=== PATIENT | female | born 1965 | race American Indian/Alaskan Native ===

== ENCOUNTER 2017-04-21 09:33 | Emergency (ER) | payer OTHER ==
[2017-04-21 10:08] VITALS: BP 136/100
[2017-04-21] MEDS ORDERED: Ketorolac 30 MG/ML SDV IM ONE (10:16)
[2017-04-21] MEDS ORDERED: oxyCODONE 5 MG Tab PO ONE (10:18)
[2017-04-21] MEDS ORDERED: Ondansetron 4 MG Tab.DIS PO ONE (10:18)
[2017-04-21 10:34] LABS: CHLORIDE,CL 108 mmol/L (101-111); SODIUM,NA 143 mmol/L (135-145)
[2017-04-21 10:35] LABS: ACETAMINOPHEN < 10
[2017-04-21] MEDS ORDERED: Acetaminophen/HYDROcodone 325-10 MG Tab PO ONE (10:46)
[2017-04-21] MEDS ORDERED: Acetaminophen/HYDROcodone 325-10 MG Tab ONE (10:46)
--- NOTE | 2017-04-22 15:44 | EDM.PDOC ---
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 Denies any other injury. Pain better with ice pack, rest and immobilization. Pain worse with movement of right knee joint, weight bearing and ambulation. Patient has been taking Tylenol 2500mg q 6 hours, but now is having nausea. Location: Reports: Lower Extremity, Right Quality: Reports: Ache Severity: Severe Improves with: Reports: None Worsens with: Reports: None Associated Symptoms: Reports: No Other Symptoms Right Knee Pain Score (Numeric/FACES): 8 - Related Data Allergies Allergy/AdvReac Type Severity Reaction Status Date / Time No Known Allergies Allergy Verified 04/21/17 09:37 Home Meds: Home Meds Acetaminophen [Acetaminophen Extra Strength] 2,500 mg PO Q6HR PRN 04/21/17 [ History] Past Medical History - Past Surgical History Musculoskeletal Surgical History: Reports: Other (See Below) (right patella repair December/2014.) Social & Family History - Family History Family Medical History: Noncontributory Review of Systems - Review of Systems Review Of Systems: ROS reveals no pertinent complaints other than HPI. ED EXAM, GENERAL - Physical Exam Exam: See Below Exam Limited By: No Limitations General Appearance: Alert, WD/WN, No Apparent Distress Respiratory/Chest: No Respiratory Distress Cardiovascular: Regular Rate, Rhythm, Tachycardia GI/Abdominal: Normal Bowel Sounds, Soft, Non-Tender, No Organomegaly, No Distention, No Abnormal Bruit, No Mass (Female) Exam: Deferred Rectal (Female) Exam: Deferred Back Exam: Normal Inspection, Full Range of Motion, NT Extremities: Other (Generalzed tenderness to right knee, no visible swelling or joint effusion. Decreased right knee ROM due to pain. ) Neurological: Alert, Oriented, CN II-XII Intact, Normal Cognition, Normal Gait, Normal Reflexes, No Motor/Sensory Deficits Psychiatric: Normal Affect, Normal Mood Skin Exam: Other (resolving contusion 7cm diameter at right tibial plateau.) Course - Vital Signs Last Recorded V/S: Last Vital Signs Temp 36.1 C 04/21/17 09:41 Pulse 99 04/21/17 10:07 Resp 16 04/21/17 09:41 BP 136/100 H 04/21/17 10:07 Pulse Ox 98 04/21/17 09:41 - Orders/Labs/Meds Labs: Laboratory Tests 04/21/17 04/21/17 Range/Units 10:06 10:06 WBC 4.5 L (5.0-10.0) 10^3/uL RBC 4.48 (4.2-5.4) 10^6/uL Hgb 14.3 (12.0-16.0) g/dL Hct 43.6 (37.0-47.0) % MCV 97.3 (80-100) fL MCH 31.9 (27.0-34.0) pg MCHC 32.8 L (33.0-35.0) g/dL Plt Count 325 (150-450) 10^3/uL Neut % (Auto) 65.7 (42.2-75.2) % Lymph % (Auto) 22.3 (20.5-50.1) % [place] % (Auto) 7.1 (2-8) % Eos % (Auto) 4.0 H (1.0-3.0) % Baso % (Auto) 0.9 (0.0-1.0) % Sodium 143 (135-145) mmol/L Potassium 4.0 (3.6-5.0) mmol/L Chloride 108 (101-111) mmol/L Carbon Dioxide 24.0 (21.0-31.0) mmol/L Anion Gap 15.0 BUN 11 (7-18) mg/dL Creatinine 0.7 (0.6-1.3) mg/dL Est Cr Clr Drug Dosing 92.46 mL/min Estimated GFR (MDRD) > 60 BUN/Creatinine Ratio 15.71 Glucose 102 (74-105) mg/dL Calcium 9.4 (8.4-10.2) mg/dl Total Bilirubin 0.6 (0.2-1.0) mg/dL AST 24 (10-42) IU/L ALT 21 (10-60) IU/L Alkaline Phosphatase 101 (42-121) IU/L Total Protein 6.7 (6.7-8.2) g/dl Albumin 3.9 (3.2-5.5) g/dl Globulin 2.8 Albumin/Globulin Ratio 1.39 Acetaminophen < 10 Meds: Medications Discontinued Medications Generic Name Dose Route Start Last Admin Trade Name Lilliana PRN Reason Stop Dose Admin Hydrocodone Bitart/Acetaminophen Confirm 04/21/17 10:46 04/21/17 10:56 [place] 325-10 Mg Administered 04/21/17 10:47 Not Given Dose 4 tab .ROUTE .STK-MED ONE Ketorolac Tromethamine 60 mg 04/21/17 10:16 04/21/17 10:26 Toradol IM 04/21/17 10:17 60 mg ONETIME ONE Administration Ondansetron HCl 4 mg 04/21/17 10:18 04/21/17 10:26 Zofran Odt PO 04/21/17 10:19 4 mg ONETIME ONE Administration Oxycodone HCl 10 mg 04/21/17 10:18 04/21/17 10:26 Oxycodone PO 04/21/17 10:19 10 mg ONETIME ONE Administration - Radiology Interpretation Free Text/Narrative:: X-ray right knee: 3.6x1.9cm area of sclerosis in the medial tibial plateau. Differential includes chronic osteomyelitis and neoplasm. Recommend bone scan for further eval. See rad report. Radiologist called and spoke with Dr. Angeles who stated that patient had injection of intraosseous material and that the sclerotic density is most likely secondary to that. See addendum. Departure - Departure Time of Disposition: 10:38 Disposition: Home, Self-Care 01 Condition: Good Clinical Impression: Contusion of right lower extremity Qualifiers: Encounter type: initial encounter Qualified Code(s): S80.11XA - Contusion of right lower leg, initial encounter Right knee sprain Qualifiers: Encounter type: initial encounter Involved ligament of knee: unspecified ligament Qualified Code(s): S83.91XA - Sprain of unspecified site of right knee , initial encounter - Discharge Information Instructions: Knee Sprain, [id number], Contusion, [id number] Forms: ED Department Discharge Additional Instructions: Rest, ice and elevate right knee. Use knee immobilizer and crutches as needed for 7 to 10 days. Follow up in clinic this week for recheck. I have read and agree with the documentation that has been completed regarding this visit. By signing this record, I attest that the documentation was completed in my physical presence and is an accurate record of the encounter.
== END 2017-04-21 10:55 | disposition home or self-care (01) ==
LOC: DL.ED 09:33
DX: S83.91XA Sprain of unspecified site of right knee, initial encounter (principal); Z98.890 Other specified postprocedural states; W01.0XXA Fall on same level from slipping, tripping and stumbling without subsequent striking against object, initial encounter
CPT/HCPCS: 36415; 73562; 80053; 85025; 96372; 99283; A9270; G0480; J1885

== ENCOUNTER 2018-04-02 18:38 | Emergency (ER) | payer OTHER ==
[2018-04-02 20:24] VITALS: BP 149/91
[2018-04-02 20:40] LABS: ANION GAP 13.2; CHLORIDE,CL 103 mmol/L (101-111); SODIUM,NA 135 mmol/L (135-145)
[2018-04-02] MEDS ORDERED: Sodium Chloride 0.9% 1,000 ML IV ONE (20:47)
--- NOTE | 2018-04-02 21:53 | EDM.PDOC ---
ED HPI GENERAL MEDICAL PROBLEM - General Chief Complaint: Neurological Problem Time Seen by Provider: 04/02/18 21:49 Source of Information: Reports: Patient, Family History Limitations: Reports: No Limitations - History of Present Illness INITIAL COMMENTS - FREE TEXT/NARRATIVE: spouse states pt was in the kitchen and he heard a thud like someone falling to the floor, went to investigate and found pt seizing and lips turned blue and not responding to him. he called 911. pt finally stop and woke up but didn't know anything. states pt does drink daily but doesn't thing she drinks a lot. pt states feels fine now. - Related Data Allergies Allergy/AdvReac Type Severity Reaction Status Date / Time No Known Allergies Allergy Verified 04/21/17 09:37 Home Meds: Home Meds Naproxen 500 mg PO Q6H PRN 04/02/18 [History] QUEtiapine Fumarate [Seroquel] 25 mg PO BEDTIME 04/02/18 [History] Zolpidem Tartrate [Ambien] 20 mg PO BEDTIME 04/02/18 [History] traMADol [Ultram] 50 mg PO BID 04/02/18 [History] Past Medical History Musculoskeletal History: Reports: Other (See Below) Other Musculoskeletal History: right patella fracture - Past Surgical History GI Surgical History: Reports: Cholecystectomy Musculoskeletal Surgical History: Reports: Other (See Below) Other Musculoskeletal Surgeries/Procedures:: knee surgery x2 on right, right rotator cuff surgery Social & Family History - Family History Family Medical History: Noncontributory - Tobacco Use Smoking Status *Q: Never Smoker - Caffeine Use Caffeine Use: Reports: Coffee - Alcohol Use Days Per Week of Alcohol Use: 5 Number of Drinks Per Day: 4 Total Drinks Per Week: 20 - Recreational Drug Use Recreational Drug Use: No ED ROS GENERAL - Review of Systems Review Of Systems: ROS reveals no pertinent complaints other than HPI. - Physical Exam Exam: See Below Exam Limited By: No Limitations General Appearance: Alert, WD/WN, No Apparent Distress Eye Exam: Bilateral Eye: PERRL (pupils ER @ 4mm) Ears: Hearing Grossly Normal Throat/Mouth: Normal Voice, No Airway Compromise Head Exam: Scalp Tenderness, Other (occiput region, no O/B) Neck: Non-Tender, Full Range of Motion Respiratory/Chest: No Respiratory Distress Cardiovascular: Regular Rate, Rhythm GI/Abdominal: Soft, Non-Tender Neuro Exam (Abbreviated): Alert, Oriented, Normal Cognition, Normal Gait, No Motor/Sensory Deficits Psychiatric: Flat Affect Skin Exam: Warm, Dry, Normal Color Course - Vital Signs Last Recorded V/S: Last Vital Signs Temp 36.8 C 04/02/18 20:06 Pulse 102 H 04/02/18 20:06 Resp 13 04/02/18 20:06 BP 149/91 H 04/02/18 20:06 Pulse Ox 100 04/02/18 20:06 - Orders/Labs/Meds Orders: Active Orders 24 hr Category Date Time Status DRUG SCREEN URINE BIORAD [URCHEM] Stat Lab 04/02/18 21:26 Ordered URINALYSIS W/MICROSCOPIC [UA W/MICROSCOPIC] [URIN] Stat Lab 04/02/18 21:26 Ordered Labs: Laboratory Tests 04/02/18 04/02/18 04/02/18 Range/Units 20:11 20:11 20:11 WBC 11.9 H (5.0-10.0) 10^3/uL RBC 4.25 (4.2-5.4) 10^6/uL Hgb 13.5 (12.0-16.0) g/dL Hct 40.4 (37.0-47.0) % MCV 95.1 (80-100) fL MCH 31.8 (27.0-34.0) pg MCHC 33.4 (33.0-35.0) g/dL Plt Count 251 (150-450) 10^3/uL Neut % (Auto) 87.4 H (42.2-75.2) % Lymph % (Auto) 6.7 L (20.5-50.1) % [place] % (Auto) 4.0 (2-8) % Eos % (Auto) 1.7 (1.0-3.0) % Baso % (Auto) 0.2 (0.0-1.0) % Sodium 135 (135-145) mmol/L Potassium 3.2 L (3.6-5.0) mmol/L Chloride 103 (101-111) mmol/L Carbon Dioxide 22.0 (21.0-31.0) mmol/L Anion Gap 13.2 BUN 11 (7-18) mg/dL Creatinine 0.6 (0.6-1.3) mg/dL Est Cr Clr Drug Dosing 102.68 mL/min Estimated GFR (MDRD) > 60 BUN/Creatinine Ratio 18.33 Glucose 86 (74-105) mg/dL Calcium 8.9 (8.4-10.2) mg/dl Total Bilirubin 0.8 (0.2-1.0) mg/dL AST 37 (10-42) IU/L ALT 27 (10-60) IU/L Alkaline Phosphatase 117 (42-121) IU/L Total Protein 6.9 (6.7-8.2) g/dl Albumin 3.8 (3.2-5.5) g/dl Globulin 3.1 Albumin/Globulin Ratio 1.23 HCG, Quant 1 (0-25) mIU/ml Beta HCG, Quant < 1050 mIU/ml Urine Color (YELLOW) Urine Appearance (CLEAR) Urine pH (5.0-9.0) Ur Specific [place] (1.005-1.030) Urine Protein (NEGATIVE) Urine Glucose (UA) (NEGATIVE) Urine Ketones (NEGATIVE) Urine Occult Blood (NEGATIVE) Urine Nitrite (NEGATIVE) Urine Bilirubin (NEGATIVE) Urine Urobilinogen (0.2-1.0) mg/dL Ur Leukocyte Esterase (NEGATIVE) Urine RBC /HPF Urine WBC (0-5/HPF) /HPF Ur Epithelial Cells /HPF Amorphous Sediment (0/HPF) /HPF Urine Bacteria (0-FEW/HPF) /HPF Urine Opiates Screen (NEGATIVE) Ur Oxycodone Screen (NEGATIVE) Urine Methadone Screen (NEGATIVE) Ur Barbiturates Screen (NEGATIVE) U Tricyclic Antidepress (NEGATIVE) Ur Phencyclidine Scrn (NEGATIVE) Ur Amphetamine Screen (NEGATIVE) U Methamphetamines Scrn (NEGATIVE) Urine MDMA Screen (NEGATIVE) U Benzodiazepines Scrn (NEGATIVE) Urine Cocaine Screen (NEGATIVE) U Marijuana (THC) Screen (NEGATIVE) Ethyl Alcohol mg/dL 04/02/18 04/02/18 04/02/18 Range/Units 20:11 21:26 21:26 WBC (5.0-10.0) 10^3/uL RBC (4.2-5.4) 10^6/uL Hgb (12.0-16.0) g/dL Hct (37.0-47.0) % MCV (80-100) fL MCH (27.0-34.0) pg MCHC (33.0-35.0) g/dL Plt Count (150-450) 10^3/uL Neut % (Auto) (42.2-75.2) % Lymph % (Auto) (20.5-50.1) % [place] % (Auto) (2-8) % Eos % (Auto) (1.0-3.0) % Baso % (Auto) (0.0-1.0) % Sodium (135-145) mmol/L Potassium (3.6-5.0) mmol/L Chloride (101-111) mmol/L Carbon Dioxide (21.0-31.0) mmol/L Anion Gap BUN (7-18) mg/dL Creatinine (0.6-1.3) mg/dL Est Cr Clr Drug Dosing mL/min Estimated GFR (MDRD) BUN/Creatinine Ratio Glucose (74-105) mg/dL Calcium (8.4-10.2) mg/dl Total Bilirubin (0.2-1.0) mg/dL AST (10-42) IU/L ALT (10-60) IU/L Alkaline Phosphatase (42-121) IU/L Total Protein (6.7-8.2) g/dl Albumin (3.2-5.5) g/dl Globulin Albumin/Globulin Ratio HCG, Quant (0-25) mIU/ml Beta HCG, Quant mIU/ml Urine Color Yellow (YELLOW) Urine Appearance Clear (CLEAR) Urine pH 5.5 (5.0-9.0) Ur Specific [place] 1.025 (1.005-1.030) Urine Protein Negative (NEGATIVE) Urine Glucose (UA) Negative (NEGATIVE) Urine Ketones Negative (NEGATIVE) Urine Occult Blood Negative (NEGATIVE) Urine Nitrite Negative (NEGATIVE) Urine Bilirubin Negative (NEGATIVE) Urine Urobilinogen 0.2 (0.2-1.0) mg/dL Ur Leukocyte Esterase Negative (NEGATIVE) Urine RBC 0-5 /HPF Urine WBC 0-5 (0-5/HPF) /HPF Ur Epithelial Cells Rare /HPF Amorphous Sediment Rare (0/HPF) /HPF Urine Bacteria Rare (0-FEW/HPF) /HPF Urine Opiates Screen Negative (NEGATIVE) Ur Oxycodone Screen Negative (NEGATIVE) Urine Methadone Screen Negative (NEGATIVE) Ur Barbiturates Screen Negative (NEGATIVE) U Tricyclic Antidepress Negative (NEGATIVE) Ur Phencyclidine Scrn Negative (NEGATIVE) Ur Amphetamine Screen Negative (NEGATIVE) U Methamphetamines Scrn Negative (NEGATIVE) Urine MDMA Screen Negative (NEGATIVE) U Benzodiazepines Scrn Negative (NEGATIVE) Urine Cocaine Screen Negative (NEGATIVE) U Marijuana (THC) Screen Negative (NEGATIVE) Ethyl Alcohol < 5 mg/dL Meds: Medications Discontinued Medications Generic Name Dose Route Start Last Admin Trade Name Freq PRN Reason Stop Dose Admin Sodium Chloride 1,000 mls @ 999 mls/hr 04/02/18 20:47 04/02/18 20:50 Normal Saline IV 04/02/18 21:47 999 mls/hr .BOLUS ONE Administration Lorazepam 1 mg 04/02/18 22:08 04/02/18 22:16 Ativan PO 04/02/18 22:09 1 mg ONETIME ONE Administration - Re-Assessments/Exams Free Text/Narrative Re-Assessment/Exam: 04/02/18 22:09 results discussed with pt & spouse. Departure - Departure Time of Disposition: 22:20 Disposition: Home, Self-Care 01 Condition: Fair Clinical Impression: Seizure - Discharge Information Instructions: Seizure, Adult, [id number] Referrals: PCP,None [Primary Care Provider] - Forms: ED Department Discharge Additional Instructions: 1) rest and avoid strenuous activities next few days 2) see clinic tomorrow for EEG AND MRI SCAN 3) avoid alcohol 4) return if there is any change or concern rx given; ativan 1mg bid x 8 - My Orders Last 24 Hours: My Active Orders 04/02/18 21:26 DRUG SCREEN URINE BIORAD [URCHEM] Stat URINALYSIS W/MICROSCOPIC [UA W/MICROSCOPIC] [URIN] Stat - Assessment/Plan Last 24 Hours: My Active Orders 04/02/18 21:26 DRUG SCREEN URINE BIORAD [URCHEM] Stat URINALYSIS W/MICROSCOPIC [UA W/MICROSCOPIC] [URIN] Stat
[2018-04-02] MEDS ORDERED: LORazepam 1 MG Tab PO ONE (22:08)
== END 2018-04-02 22:21 | disposition home or self-care (01) ==
LOC: DL.ED 18:38
DX: R56.9 Unspecified convulsions (principal)
CPT/HCPCS: 36415; 70450; 80053; 80305; 81001; 84702; 85025; 99285; A9270; G0480; J7030

== ENCOUNTER 2019-02-13 11:15 | Emergency (ER) | payer OTHER ==
[2019-02-13 11:22] VITALS: BP 158/90
[2019-02-13] MEDS: Ondansetron 4 MG/2 ML SDV IV ONE (11:32)
[2019-02-13 11:57] LABS: ANION GAP 16.6; CHLORIDE,CL 109 mmol/L (101-111); SODIUM,NA 141 mmol/L (135-145)
--- NOTE | 2019-02-13 12:20 | CT ---
Clinical history: 54-year-old female in the emergency department with seizure was reported on 02 April 2018 to have "normal" CT of the head and brain (the latter obtained for "first time seizure"). Scan technique: Volume acquisition of data emergency unenhanced CT scan of the head and brain obtained with patient lying supine on the Siemens multi slice scanner [place], [place]. All data archived in the PACS system for storage, reformatting axial/sagittal/coronal planes and study (bone/brain windows). Interpretation: 1. Isolated tiny lacunar type infarcts identified respectively in the external capsule deep in the left cerebral hemisphere and anterior limb of the internal capsule basal ganglia on the right (not appreciated even in retrospect on CT scan of the head 02 April 2018 4 follow-up MRI exam of the brain 29 April 2018). No edema or mass effect on the surrounding parenchyma. 2. No new supratentorial or posterior fossa mass lesion. No hydrocephalus. 3. No sign of acute intracerebral/intraventricular/subarachnoid bleed. 4. Uniformly thick bony calvarium. Symmetric clear pneumatization of the paranasal and mastoid sinuses. Nasal septum midline. 5. No abnormal extracerebral/intracranial epidural or subdural hematoma. CONCLUSION: Microvascular ischemic changes that appear to be new since 2018. No intracranial mass or bleed.
[2019-02-13] MEDS: 50% Dextrose in Water 50 ML Syringe IVPUSH ONE (12:55)
[2019-02-13] MEDS: levETIRAcetam 500 MG in Sodium Chloride 0.9% 100 ML IV ONE (13:11)
[2019-02-13] MEDS: Acetaminophen 325 MG Tab PO ONE (13:11)
[2019-02-13] MEDS: 50% Dextrose in Water 50 ML Syringe ONE (13:11)
--- NOTE | 2019-02-18 06:00 | EDM.PDOC ---
Scribed by Marva Hamilton 02/13/19 1212 for Darlene Hair PA-C ED HPI GENERAL MEDICAL PROBLEM - General Chief Complaint: Neurological Problem Stated Complaint: HAD A SEIZURE Time Seen by Provider: 02/13/19 11:25 Source of Information: Reports: Patient, Family, [facility] Records, RN History Limitations: Reports: Other (drowsy and slow response) - History of Present Illness INITIAL COMMENTS - FREE TEXT/NARRATIVE: Patient presents to ER stating that she was lying in bed watching her phone. Her spouse felt the bed shaking which lasted about 90 seconds. Patient was disoriented. She had a seizure about a year ago and saw Dr. Reyes and no cause was found. Patient has been on Tramadol for a year for knee pain. She has sporadic ETOH history. She had 3 beers last night. Her primary complaint now is nausea. No headache or dizziness. Onset: Today Location: Reports: Generalized Quality: Reports: Ache Severity: Moderate Improves with: Reports: None Worsens with: Reports: None Associated Symptoms: Reports: No Other Symptoms - Related Data Allergies Allergy/AdvReac Type Severity Reaction Status Date / Time No Known Allergies Allergy Verified 04/21/17 09:37 Home Meds: Home Meds Naproxen 500 mg PO Q6H PRN 04/02/18 [History] QUEtiapine Fumarate [Seroquel] 25 mg PO BEDTIME 04/02/18 [History] Zolpidem Tartrate [Ambien] 20 mg PO BEDTIME 04/02/18 [History] traMADol [Ultram] 50 mg PO BID 04/02/18 [History] Past Medical History HEENT History: Reports: None Cardiovascular History: Reports: None Respiratory History: Reports: None Genitourinary History: Reports: None [employer] History: Reports: None Musculoskeletal History: Reports: Other (See Below) Other Musculoskeletal History: right patella fracture Neurological History: Reports: Seizure Psychiatric History: Reports: Bipolar Endocrine/Metabolic History: Reports: None Hematologic History: Reports: None Immunologic History: Reports: None Oncologic (Cancer) History: Reports: None Dermatologic History: Reports: None - Infectious Disease History Infectious Disease History: Reports: None - Past Surgical History Head Surgeries/Procedures: Reports: None GI Surgical History: Reports: Cholecystectomy Musculoskeletal Surgical History: Reports: Other (See Below) Other Musculoskeletal Surgeries/Procedures:: knee surgery x2 on right, right rotator cuff surgery Social & Family History - Family History Family Medical History: Noncontributory - Tobacco Use Smoking Status *Q: Never Smoker Second Hand Smoke Exposure: No - Caffeine Use Caffeine Use: Reports: Coffee - Alcohol Use Alcohol Use History: Yes - Recreational Drug Use Recreational Drug Use: No ED ROS GENERAL - Review of Systems Review Of Systems: ROS reveals no pertinent complaints other than HPI. - Physical Exam Exam: See Below Exam Limited By: No Limitations General Appearance: Other (pale, slow verbal response and shaking.) Eye Exam: Bilateral Eye: EOMI, Normal Inspection, PERRL (6 darting) Ears: Normal External Exam, Normal Canal, Hearing Grossly Normal, Normal TMs Nose: Normal Inspection, Normal Mucosa, No Blood Throat/Mouth: Normal Inspection, Normal Lips, Normal Teeth, Normal Gums, Normal Oropharynx, Normal Voice, No Airway Compromise Head Exam: Atraumatic, Normocephalic Neck: Normal Inspection, Supple, Non-Tender, Full Range of Motion Respiratory/Chest: No Respiratory Distress, Lungs Clear, Normal Breath Sounds, No Accessory Muscle Use, Chest Non-Tender Cardiovascular: Regular Rate, Rhythm, Tachycardia GI/Abdominal: Soft. No: Distended, Guarding (Female) Exam: Deferred Rectal (Female) Exam: Deferred Neuro Exam (Abbreviated): Alert, Oriented, Slow to Respond Back Exam: Normal Inspection, Full Range of Motion, NT Extremities: Normal Inspection, Normal Range of Motion, Non-Tender, No Pedal Edema, Normal Capillary Refill Skin Exam: Warm, Dry, Intact, Other (pale) Course - Vital Signs Last Recorded V/S: Last Vital Signs Temp 97.9 F 02/13/19 11:18 Pulse 140 H 02/13/19 11:18 Resp 18 02/13/19 11:18 BP 158/90 H 02/13/19 11:18 Pulse Ox 93 L 02/13/19 11:18 - Orders/Labs/Meds Labs: Laboratory Tests 02/13/19 02/13/19 02/13/19 Range/Units 11:29 11:29 12:19 WBC 12.3 H (5.0-10.0) 10^3/uL RBC 4.42 (4.2-5.4) 10^6/uL Hgb 13.9 (12.0-16.0) g/dL Hct 41.3 (37.0-47.0) % MCV 93.4 (80-100) fL MCH 31.4 (27.0-34.0) pg MCHC 33.7 (33.0-35.0) g/dL Plt Count 263 (150-450) 10^3/uL Neut % (Auto) 72.1 (42.2-75.2) % Lymph % (Auto) 18.3 L (20.5-50.1) % [place] % (Auto) 7.1 (2-8) % Eos % (Auto) 2.3 (1.0-3.0) % Baso % (Auto) 0.2 (0.0-1.0) % Sodium 141 (135-145) mmol/L Potassium 3.6 (3.6-5.0) mmol/L Chloride 109 (101-111) mmol/L Carbon Dioxide 19.0 L (21.0-31.0) mmol/L Anion Gap 16.6 BUN 15 (7-18) mg/dL Creatinine 0.6 (0.6-1.3) mg/dL Est Cr Clr Drug Dosing 109.38 mL/min Estimated GFR (MDRD) > 60 BUN/Creatinine Ratio 25.00 Glucose 61 L (74-105) mg/dL POC Glucose (70-105) mg/dl Calcium 9.0 (8.4-10.2) mg/dl Total Bilirubin 0.5 (0.2-1.0) mg/dL AST 34 (10-42) IU/L ALT 31 (10-60) IU/L Alkaline Phosphatase 166 H (42-121) IU/L Total Protein 6.8 (6.7-8.2) g/dl Albumin 3.9 (3.2-5.5) g/dl Globulin 2.9 Albumin/Globulin Ratio 1.34 Urine Color Yellow (YELLOW) Urine Appearance Clear (CLEAR) Urine pH 5.5 (5.0-9.0) Ur Specific [place] 1.025 (1.005-1.030) Urine Protein Negative (NEGATIVE) Urine Glucose (UA) Negative (NEGATIVE) Urine Ketones Negative (NEGATIVE) Urine Occult Blood Negative (NEGATIVE) Urine Nitrite Negative (NEGATIVE) Urine Bilirubin Negative (NEGATIVE) Urine Urobilinogen 0.2 (0.2-1.0) mg/dL Ur Leukocyte Esterase Negative (NEGATIVE) Urine Opiates Screen (NEGATIVE) Ur Oxycodone Screen (NEGATIVE) Urine Methadone Screen (NEGATIVE) Ur Barbiturates Screen (NEGATIVE) U Tricyclic Antidepress (NEGATIVE) Ur Phencyclidine Scrn (NEGATIVE) Ur Amphetamine Screen (NEGATIVE) U Methamphetamines Scrn (NEGATIVE) Urine MDMA Screen (NEGATIVE) U Benzodiazepines Scrn (NEGATIVE) Urine Cocaine Screen (NEGATIVE) U Marijuana (THC) Screen (NEGATIVE) Ethyl Alcohol 22 mg/dL 02/13/19 02/13/19 02/13/19 Range/Units 12:19 12:52 13:10 WBC (5.0-10.0) 10^3/uL RBC (4.2-5.4) 10^6/uL Hgb (12.0-16.0) g/dL Hct (37.0-47.0) % MCV (80-100) fL MCH (27.0-34.0) pg MCHC (33.0-35.0) g/dL Plt Count (150-450) 10^3/uL Neut % (Auto) (42.2-75.2) % Lymph % (Auto) (20.5-50.1) % [place] % (Auto) (2-8) % Eos % (Auto) (1.0-3.0) % Baso % (Auto) (0.0-1.0) % Sodium (135-145) mmol/L Potassium (3.6-5.0) mmol/L Chloride (101-111) mmol/L Carbon Dioxide (21.0-31.0) mmol/L Anion Gap BUN (7-18) mg/dL Creatinine (0.6-1.3) mg/dL Est Cr Clr Drug Dosing mL/min Estimated GFR (MDRD) BUN/Creatinine Ratio Glucose (74-105) mg/dL POC Glucose 69 L 107 H (70-105) mg/dl Calcium (8.4-10.2) mg/dl Total Bilirubin (0.2-1.0) mg/dL AST (10-42) IU/L ALT (10-60) IU/L Alkaline Phosphatase (42-121) IU/L Total Protein (6.7-8.2) g/dl Albumin (3.2-5.5) g/dl Globulin Albumin/Globulin Ratio Urine Color (YELLOW) Urine Appearance (CLEAR) Urine pH (5.0-9.0) Ur Specific [place] (1.005-1.030) Urine Protein (NEGATIVE) Urine Glucose (UA) (NEGATIVE) Urine Ketones (NEGATIVE) Urine Occult Blood (NEGATIVE) Urine Nitrite (NEGATIVE) Urine Bilirubin (NEGATIVE) Urine Urobilinogen (0.2-1.0) mg/dL Ur Leukocyte Esterase (NEGATIVE) Urine Opiates Screen Negative (NEGATIVE) Ur Oxycodone Screen Negative (NEGATIVE) Urine Methadone Screen Negative (NEGATIVE) Ur Barbiturates Screen Negative (NEGATIVE) U Tricyclic Antidepress Negative (NEGATIVE) Ur Phencyclidine Scrn Negative (NEGATIVE) Ur Amphetamine Screen Negative (NEGATIVE) U Methamphetamines Scrn Negative (NEGATIVE) Urine MDMA Screen Negative (NEGATIVE) U Benzodiazepines Scrn Negative (NEGATIVE) Urine Cocaine Screen Negative (NEGATIVE) U Marijuana (THC) Screen Negative (NEGATIVE) Ethyl Alcohol mg/dL Meds: Medications Discontinued Medications Generic Name Dose Route Start Last Admin Trade Name Freq PRN Reason Stop Dose Admin Acetaminophen 650 mg 02/13/19 13:04 02/13/19 13:11 Tylenol PO 02/13/19 13:05 650 mg NOW ONE Administration Dextrose/Water 25 ml 02/13/19 12:53 02/13/19 12:55 Dextrose 50% In Water IVPUSH 02/13/19 12:54 25 ml ONETIME ONE Administration Dextrose/Water Confirm 02/13/19 12:53 02/13/19 13:11 Dextrose 50% In Water Administered 02/13/19 12:54 Not Given Dose 50 ml .ROUTE .STK-MED ONE Levetiracetam 500 mg/ Sodium 105 mls @ 400 mls/hr 02/13/19 13:03 02/13/19 13: 11 Chloride IV 02/13/19 13:17 400 mls/hr ONETIME ONE Administration Ondansetron HCl 4 mg 02/13/19 11:28 02/13/19 11:32 Zofran IV 02/13/19 11:29 4 mg ONETIME ONE Administration - Re-Assessments/Exams Free Text/Narrative Re-Assessment/Exam: 02/13/19 13:[address] Rebel Osborn Neuro. Recommend Keppra 500mg twice daily. Likely home with outpatient follow up unless changes. 02/13/19 14:[address] Oneyka Patient remains altered . Swelling to right lower lip, inside laceration no active bleeding. , Slight echymosis and swelling to right outer eyebrow. Tx via LRAS. TC Departure - Departure Time of Disposition: 14:24 Disposition: DC/Tfer to Acute Hospital 02 Condition: Good Clinical Impression: Seizure, Hx of bipolar disorder Altered mental status, unspecified Qualifiers: Altered mental status type: disorientation Qualified Code(s): R41.0 - Disorientation, unspecified - Discharge Information *PRESCRIPTION DRUG MONITORING PROGRAM REVIEWED*: No *COPY OF PRESCRIPTION DRUG MONITORING REPORT IN PATIENT NORMA: No Referrals: PCP,None [Primary Care Provider] - Forms: ED Department Discharge I have read and agree with the documentation that has been completed regarding this visit. By signing this record, I attest that the documentation was completed in my physical presence and is an accurate record of the encounter.
== END 2019-02-13 15:00 ==
LOC: DL.ED 11:15
DX: R56.9 Unspecified convulsions (principal); R41.0 Disorientation, unspecified; F31.9 Bipolar disorder, unspecified; Z79.899 Other long term (current) drug therapy
CPT/HCPCS: 36415; 70450; 80053; 80305; 81003; 82962; 85025; 93005; 96365; 96375; 99285; A9270; G0480; J1953; J2405; J7050; J7060

== ENCOUNTER 2021-12-03 12:34 | Emergency (ER) | payer OTHER ==
[2021-12-03 13:05] VITALS: BP 95/71; PULSE 86
== END 2021-12-03 16:12 | disposition home or self-care (01) ==
LOC: DL.ED 12:34
DX: S96.911A Strain of unspecified muscle and tendon at ankle and foot level, right foot, initial encounter (principal); X50.1XXA Overexertion from prolonged static or awkward postures, initial encounter; Y92.002 Bathroom of unspecified non-institutional (private) residence as the place of occurrence of the external cause
CPT/HCPCS: 73610-RT; 99282; 99283-25

== ENCOUNTER 2023-08-28 14:41 | Inpatient (IN) | payer OTHER ==
[2023-08-28 16:06] LABS: BASOPHILS PERCENT AUTO 0.4 % (0.0-1.0); EOSINOPHILS PERCENT AUTO 2.1 % (1.0-3.0); HEMATOCRIT 32.6 % (37.0-47.0); HEMOGLOBIN 11.2 g/dL (12.0-16.0); LYMPHOCYTES PERCENT AUTO 26.4 % (20.5-50.1); MEAN CORPUSCULAR HEMOGLOBIN 36.4 pg (27.0-34.0); MEAN CORPUSCULAR HGB CONC 34.4 g/dL (33.0-35.0); MEAN CORPUSCULAR VOLUME 105.8 fL (80-100); MONOCYTES PERCENT AUTO 12.7 % (2-8); NEUTROPHILS PERCENT AUTO 58.4 % (42.2-75.2); PLATELET COUNT,PLT 240 10^3/uL (150-450); RED BLOOD CELL COUNT 3.08 10^6/uL (4.2-5.4); WHITE BLOOD CELL COUNT,WBC 5.3 10^3/uL (5.0-10.0)
[2023-08-28 16:20] LABS: APPEARANCE,URINE CLEAR (CLEAR); BILIRUBIN,URINE MODERATE (NEGATIVE); COLOR,URINE DARK YELLOW (YELLOW); GLUCOSE,URINE 100 (NEGATIVE); KETONES,URINE 40 (NEGATIVE); LEUKOCYTE ESTERASE,URINE NEGATIVE (NEGATIVE); NITRITE,URINE NEGATIVE (NEGATIVE); OCCULT BLOOD,URINE NEGATIVE (NEGATIVE); PROTEIN,URINE 30 (NEGATIVE); UROBILINOGEN,URINE >=8.0 mg/dL (0.2-1.0)
[2023-08-28 16:22] LABS: INR 1.2 (0.9-1.2); PROTHROMBIN TIME 12.1 SEC (9.0-12.0); PTT,PARTIAL THROMBOPLSTIN TIME 26.1 SEC (22.0-34.0)
[2023-08-28 16:23] LABS: AMPHETAMINES,URINE NEGATIVE (NEGATIVE); BARBITURATES,URINE NEGATIVE (NEGATIVE); BENZODIAZEPINE,URINE NEGATIVE (NEGATIVE); MDMA (ECSTASY), URINE NEGATIVE (NEGATIVE); METHADONE,URINE NEGATIVE (NEGATIVE); METHAMPHETAMINES,URINE NEGATIVE (NEGATIVE); OPIATES,URINE NEGATIVE (NEGATIVE); OXYCODONE,URINE NEGATIVE (NEGATIVE); PHENCYCLIDINE,URINE NEGATIVE (NEGATIVE); TCA,URINE POSITIVE (NEGATIVE)
[2023-08-28 16:26] LABS: B-TYPE NATRIURETIC PEPTIDE,BNP 92 pg/ml (0-100)
[2023-08-28 16:29] LABS: AMORPHOUS SEDIMENT,URINE MODERATE /HPF (NOT SEEN); BACTERIA,URINE FEW /HPF (0-FEW/HPF); EPITHELIAL CELLS,URINE MODERATE /HPF (NOT SEEN); MUCUS,URINE MODERATE /LPF (NOT SEEN); RBC,URINE 0-5 /HPF (0-5); WBC,URINE 0-5 /HPF (0-5/HPF)
[2023-08-28 16:30] LABS: LACTIC ACID 1.7 mmol/L (0.4-2.0)
[2023-08-28 16:33] LABS: A/G RATIO 0.54; ALANINE AMINOTRANSFERASE,ALT 36 U/L (14-59); ALBUMIN 2.2 g/dL (3.4-5.0); ALKALINE PHOSPHATASE 142 U/L (46-116); ANION GAP 17.3 mEq/L (7-13); ASPARTATE AMNIOTRANSFERASE,AST 32 U/L (15-37); BILIRUBIN TOTAL 1.7 mg/dL (0.2-1.0); BLOOD UREA NITROGEN,BUN 11 mg/dL (7-18); BUN/CREATININE RATIO 15.5 (No establ ref range); C-REACTIVE PROTEIN 0.76 ng/dL (<=0.50); CALCIUM 8.1 mg/dL (8.5-10.1); CARBON DIOXIDE,CO2 25 mmol/L (21-32); CHLORIDE,CL 108 mmol/L (98-107); CREATININE 0.71 mg/dL (0.55-1.02); EST CRCL DRUG DOSING (CG) 91.36 mL/min; ESTIMATED GFR 99 mL/min (>=60); ETHANOL BLOOD MEDICAL < 3 mg/dL (0); GLUCOSE RANDOM 101 mg/dL (70-99); LIPASE 6 U/L (16-77); MAGNESIUM 1.7 mg/dL (1.8-2.4); POTASSIUM,K 4.3 mmol/L (3.5-5.1); PROTEIN TOTAL,TP 6.3 g/dL (6.4-8.2); SODIUM,NA 146 mmol/L (136-145); TSH ULTRASENSITIVE 1.12 uIU/mL (0.36-3.74)
[2023-08-28] MEDS ORDERED: Lactulose Soln 10 GM/15 ML 30 ML UD Cup PO ONE (16:40)
[2023-08-28 17:37] LABS: CORONAVIRUS COVID-19 NAA NEGATIVE (NEGATIVE); INFLUENZA A NAA NEGATIVE (NEGATIVE); INFLUENZA B NAA NEGATIVE (NEGATIVE); RESPIRATORY SYNCYTIAL VIR NAA NEGATIVE (NEGATIVE)
[2023-08-28] MEDS ORDERED: Polyethylene Glycol 3350 Powder 17 GM Packet PO PRN (18:56)
[2023-08-28] MEDS ORDERED: Ondansetron 4 MG/2 ML SDV IVPUSH PRN (18:56)
[2023-08-28] MEDS ORDERED: Magnesium Hydroxide 400 MG/5 ML Susp 30 ML Cup PO PRN (18:56)
[2023-08-28] MEDS ORDERED: Acetaminophen 325 MG Tab PO PRN (18:56)
[2023-08-28] MEDS ORDERED: Albuterol/Ipratropium 3.0-0.5 MG/3 ML Neb Soln NEB PRN (18:56)
[2023-08-28] MEDS ORDERED: Ketorolac 30 MG/ML SDV IVPUSH PRN (18:56)
[2023-08-28] MEDS ORDERED: Sennosides/Docusate Sodium 50-8.6 MG Tab PO PRN (18:56)
[2023-08-28] MEDS ORDERED: Sodium Chloride 0.9% 10 ML Syringe FLUSH PRN (18:56)
[2023-08-28] MEDS ORDERED: traMADol 50 MG Tab PO PRN (18:59)
[2023-08-28] MEDS ORDERED: MVI, Adult with Vitamin K 10 ML, Folic Acid 1 MG, Thiamine 100 MG in Lactated Ringers 1... IV ONE ×4 (19:01)
[2023-08-28] MEDS ORDERED: Naproxen 250 MG Tab PO PRN (19:08)
[2023-08-28] MEDS ORDERED: Haloperidol Lactate 5 MG/ML SDV IM PRN (19:22)
[2023-08-28] MEDS ORDERED: LORazepam 0.5 MG Tab PO PRN (19:22)
[2023-08-28] MEDS ORDERED: Thiamine 100 MG in Sodium Chloride 0.9% 50 ML IV ONE (19:22)
[2023-08-28] MEDS ORDERED: Magnesium Sulfate/Water 2 GM in Premix Bag 1 BAG IV ONE (19:24)
[2023-08-28] MEDS ORDERED: MVI, Adult with Vitamin K 10 ML, Folic Acid 1 MG, Thiamine 200 MG in Lactated Ringers 1... IV ONE ×4 (19:45)
[2023-08-28] MEDS: LORazepam 2 MG/ML SDV IV PRN ×2 (20:15→21:15)
[2023-08-28] MEDS: Famotidine 20 MG Tab PO SCH (20:16)
[2023-08-28] MEDS: Sodium Chloride 0.9% 10 ML Syringe FLUSH SCH (20:31)
[2023-08-28] MEDS ORDERED: Folic Acid 1 MG Tab PO SCH (21:00)
[2023-08-29] MEDS: LORazepam 2 MG/ML SDV IV PRN ×2 (04:00→21:27)
[2023-08-29 05:55] LABS: BASOPHILS PERCENT AUTO 0.5 % (0.0-1.0); EOSINOPHILS PERCENT AUTO 5.1 % (1.0-3.0); HEMATOCRIT 28.6 % (37.0-47.0); HEMOGLOBIN 9.9 g/dL (12.0-16.0); LYMPHOCYTES PERCENT AUTO 39.4 % (20.5-50.1); MEAN CORPUSCULAR HEMOGLOBIN 36.1 pg (27.0-34.0); MEAN CORPUSCULAR HGB CONC 34.6 g/dL (33.0-35.0); MEAN CORPUSCULAR VOLUME 104.4 fL (80-100); MONOCYTES PERCENT AUTO 12.7 % (2-8); NEUTROPHILS PERCENT AUTO 42.3 % (42.2-75.2); PLATELET COUNT,PLT 250 10^3/uL (150-450); RED BLOOD CELL COUNT 2.74 10^6/uL (4.2-5.4); WHITE BLOOD CELL COUNT,WBC 3.9 10^3/uL (5.0-10.0)
[2023-08-29 06:11] LABS: ALBUMIN 1.7 g/dL (3.4-5.0); ANION GAP 12.4 mEq/L (7-13); BILIRUBIN TOTAL 1.2 mg/dL (0.2-1.0); CALCIUM 7.7 mg/dL (8.5-10.1); CREATININE 0.6 mg/dL (0.55-1.02); EST CRCL DRUG DOSING (CG) 81.82 mL/min; MAGNESIUM 2.4 mg/dL (1.8-2.4); POTASSIUM,K 3.4 mmol/L (3.5-5.1); PROTEIN TOTAL,TP 5.2 g/dL (6.4-8.2)
[2023-08-29 06:13] LABS: A/G RATIO 0.49
[2023-08-29] MEDS ORDERED: Potassium Chloride 20 MEQ in Premix Bag 1 BAG IV ONE (10:29)
[2023-08-29] MEDS: Propranolol 10 MG Tab PO SCH (10:30)
[2023-08-29] MEDS: Folic Acid 1 MG Tab PO SCH (10:30)
[2023-08-29] MEDS: Losartan 25 MG Tab PO SCH (10:30)
[2023-08-29] MEDS: Sodium Chloride 0.9% 10 ML Syringe FLUSH SCH ×2 (10:30→21:28)
[2023-08-29] MEDS: Famotidine 20 MG Tab PO SCH ×2 (10:30→21:28)
[2023-08-29] MEDS ORDERED: Sodium Chloride 0.9% 1,000 ML IV SCH (10:30)
[2023-08-29] MEDS: Thiamine 100 MG Tab PO SCH (21:28)
[2023-08-29] MEDS: Multivitamin Tab PO SCH (21:28)
[2023-08-30] MEDS: LORazepam 2 MG/ML SDV IV PRN (03:37)
[2023-08-30] MEDS ORDERED: Flumazenil 0.1 MG/ML 5 ML MDV ONE (04:44)
[2023-08-30] MEDS ORDERED: Flumazenil 0.1 MG/ML 5 ML MDV IVPUSH ONE (04:44)
[2023-08-30] MEDS ORDERED: LORazepam 2 MG/ML SDV IVPUSH PRN (04:50)
[2023-08-30 05:03] LABS: BASOPHILS PERCENT AUTO 0.2 % (0.0-1.0); EOSINOPHILS PERCENT AUTO 1.7 % (1.0-3.0); HEMATOCRIT 31.6 % (37.0-47.0); LYMPHOCYTES PERCENT AUTO 20.1 % (20.5-50.1); MEAN CORPUSCULAR HEMOGLOBIN 36.5 pg (27.0-34.0); MEAN CORPUSCULAR HGB CONC 34.8 g/dL (33.0-35.0); PLATELET COUNT,PLT 232 10^3/uL (150-450); RED BLOOD CELL COUNT 3.01 10^6/uL (4.2-5.4); WHITE BLOOD CELL COUNT,WBC 5.4 10^3/uL (5.0-10.0)
[2023-08-30 05:12] LABS: O2 DELIVERY DEVICE ROOM AIR
[2023-08-30 05:13] LABS: BASE EXCESS ARTERIAL -5 mmol/L ((-2)-(+3)); BICARBONATE,ARTERIAL 17.7 mmol/L (22-26); O2 SATURATION ARTERIAL 93 % (95-100); PCO2 ARTERIAL 29 mmHg (35-45); PH,ARTERIAL 7.41 (7.35-7.45); PO2 ARTERIAL 73 mmHg (70-100)
[2023-08-30 05:14] LABS: ALLEN TEST positive
[2023-08-30 05:17] LABS: A/G RATIO 0.49; ALBUMIN 1.8 g/dL (3.4-5.0); ANION GAP 18.1 mEq/L (7-13); BILIRUBIN TOTAL 1.6 mg/dL (0.2-1.0); BUN/CREATININE RATIO 16.5 (No establ ref range); CALCIUM 7.3 mg/dL (8.5-10.1); CREATININE 0.79 mg/dL (0.55-1.02); EST CRCL DRUG DOSING (CG) 62.14 mL/min; POTASSIUM,K 4.1 mmol/L (3.5-5.1); PROTEIN TOTAL,TP 5.5 g/dL (6.4-8.2)
[2023-08-30 05:47] LABS: APPEARANCE,URINE CLEAR (CLEAR); BILIRUBIN,URINE LARGE (NEGATIVE); GLUCOSE,URINE 100 (NEGATIVE); KETONES,URINE 40 (NEGATIVE); LEUKOCYTE ESTERASE,URINE NEGATIVE (NEGATIVE); NITRITE,URINE POSITIVE (NEGATIVE); OCCULT BLOOD,URINE NEGATIVE (NEGATIVE); PH,URINE 5.5 (5.0-9.0); PROTEIN,URINE 30 (NEGATIVE); UROBILINOGEN,URINE >=8.0 mg/dL (0.2-1.0)
[2023-08-30 05:48] LABS: COLOR,URINE AMBER (YELLOW)
[2023-08-30] MEDS ORDERED: Dextrose 5%-0.9% NaCl 1,000 ML IV SCH (06:15)
[2023-08-30 06:30] LABS: BACTERIA,URINE FEW /HPF (0-FEW/HPF); EPITHELIAL CELLS,URINE FEW /HPF (NOT SEEN); RBC,URINE 0-5 /HPF (0-5)
[2023-08-30 06:31] LABS: GRANULAR CASTS,URINE RARE; HYALINE CASTS,URINE FEW; MUCUS,URINE MODERATE /LPF (NOT SEEN)
[2023-08-30] MEDS ORDERED: hydrALAZINE 20 MG/ML SDV IVPUSH PRN ×2 (08:24→10:32)
[2023-08-30] MEDS: Multivitamin Tab PO SCH (09:10)
[2023-08-30] MEDS: Famotidine 20 MG Tab PO SCH (09:10)
[2023-08-30] MEDS: Thiamine 100 MG Tab PO SCH (09:10)
[2023-08-30] MEDS: Propranolol 10 MG Tab PO SCH (09:10)
[2023-08-30] MEDS: Folic Acid 1 MG Tab PO SCH (09:11)
[2023-08-30] MEDS: Losartan 25 MG Tab PO SCH (09:11)
[2023-08-30] MEDS ORDERED: Metoprolol Tartrate 5 MG/5 ML SDV IVPUSH PRN (10:32)
[2023-08-30] MEDS ORDERED: levETIRAcetam in NaCl (iso-os) 1,000 MG in Premix Bag 1 BAG IV ONE ×4 (10:38→11:45)
[2023-08-30] MEDS ORDERED: levETIRAcetam in NaCl (iso-os) 100 ML ONE (10:52)
[2023-08-30] MEDS ORDERED: Piperacillin/Tazobactam 4.5 GM in Sodium Chloride 0.9% 100 ML IV ONE (12:00)
[2023-08-30] MEDS ORDERED: Piperacillin/Tazobactam 4.5 GM in Sodium Chloride 0.9% 100 ML IV SCH (16:00)
[2023-08-30 17:47] VITALS: BP 131/110; PULSE 128
== END 2023-08-30 11:50 | DRG 70 ==
LOC: DL.ED 14:41 → DL.MS 17:12
PROVIDERS: ADMIT Internal Medicine; ATTEND Internal Medicine
DX: G93.40 Encephalopathy, unspecified (principal); G31.2 Degeneration of nervous system due to alcohol; F10.10 Alcohol abuse, uncomplicated; G93.41 Metabolic encephalopathy; I63.9 Cerebral infarction, unspecified; E87.0 Hyperosmolality and hypernatremia; E80.7 Disorder of bilirubin metabolism, unspecified; Z20.822 Contact with and (suspected) exposure to COVID-19; E72.20 Disorder of urea cycle metabolism, unspecified; E87.1 Hypo-osmolality and hyponatremia; I47.20 Ventricular tachycardia, unspecified; G47.00 Insomnia, unspecified; F31.9 Bipolar disorder, unspecified; F41.9 Anxiety disorder, unspecified; G40.909 Epilepsy, unspecified, not intractable, without status epilepticus; D53.9 Nutritional anemia, unspecified; E83.42 Hypomagnesemia; G89.29 Other chronic pain; D50.9 Iron deficiency anemia, unspecified; E87.8 Other disorders of electrolyte and fluid balance, not elsewhere classified; R74.8 Abnormal levels of other serum enzymes; E88.09 Other disorders of plasma-protein metabolism, not elsewhere classified; E86.0 Dehydration; F10.20 Alcohol dependence, uncomplicated; Z79.899 Other long term (current) drug therapy; Z90.49 Acquired absence of other specified parts of digestive tract; Z11.52 Encounter for screening for COVID-19; Z98.890 Other specified postprocedural states
CPT/HCPCS: 0241U; 36415; 36600; 51702; 70450; 70551; 71045; 80053; 80061; 80177; 80305; 80307; 81001; 82140; 82550; 82803; 82947; 83605; 83690; 83735; 83880; 84443; 84484; 85025; 85610; 85730; 86140; 87086; 93005; 93880; 93010; 99284; A9270-GY; J0360; J1630; J1885; J1953; J2060; J2543; J3411; J3475; J3480; J3490; J7030; J7042; J7120

== ENCOUNTER 2023-11-10 15:40 | Emergency (ER) | payer OTHER ==
[2023-11-10 16:26] LABS: HEMATOCRIT 36.7 % (37.0-47.0); HEMOGLOBIN 12.1 g/dL (12.0-16.0); MEAN CORPUSCULAR HEMOGLOBIN 31.3 pg (27.0-34.0); MEAN CORPUSCULAR VOLUME 94.8 fL (80-100); PLATELET COUNT,PLT 274 10^3/uL (150-450); RED BLOOD CELL COUNT 3.87 10^6/uL (4.2-5.4); WHITE BLOOD CELL COUNT,WBC 4.5 10^3/uL (5.0-10.0)
[2023-11-10 16:28] LABS: BASOPHILS PERCENT AUTO 0.4 % (0.0-1.0); EOSINOPHILS PERCENT AUTO 3.1 % (1.0-3.0); LYMPHOCYTES PERCENT AUTO 55.5 % (20.5-50.1); MONOCYTES PERCENT AUTO 7.9 % (2-8); NEUTROPHILS PERCENT AUTO 33.1 % (42.2-75.2)
[2023-11-10 16:30] VITALS: PULSE 64
[2023-11-10] MEDS: Sodium Chloride 0.9% 1,000 ML IV SCH (16:30)
[2023-11-10 16:44] LABS: EOSINOPHILS PERCENT MAN 3 % (1-3); LYMPHOCYTES PERCENT MAN 46 % (20-50); MONOCYTES PERCENT MAN 5 % (2-8); SEG NEUTROPHILS PERCENT MAN 46 % (42-75)
[2023-11-10 16:51] LABS: A/G RATIO 0.61; ALBUMIN 2.5 g/dL (3.4-5.0); ANION GAP 14.6 mEq/L (7-13); BILIRUBIN TOTAL 1.2 mg/dL (0.2-1.0); BUN/CREATININE RATIO 9.2 (No establ ref range); CALCIUM 8.7 mg/dL (8.5-10.1); CREATININE 0.76 mg/dL (0.55-1.02); EST CRCL DRUG DOSING (CG) 85.35 mL/min; POTASSIUM,K 3.6 mmol/L (3.5-5.1); PROTEIN TOTAL,TP 6.6 g/dL (6.4-8.2)
[2023-11-10] MEDS: Iopamidol 612 MG/ML 100 ML Bottle IVPUSH ONE (17:01)
[2023-11-10 17:42] LABS: APPEARANCE,URINE SLIGHTLY CLOUDY (CLEAR); BILIRUBIN,URINE SMALL (NEGATIVE); COLOR,URINE YELLOW (YELLOW); GLUCOSE,URINE NEGATIVE (NEGATIVE); KETONES,URINE 15 (NEGATIVE); LEUKOCYTE ESTERASE,URINE TRACE (NEGATIVE); NITRITE,URINE NEGATIVE (NEGATIVE); OCCULT BLOOD,URINE NEGATIVE (NEGATIVE); PROTEIN,URINE NEGATIVE (NEGATIVE)
[2023-11-10 17:51] LABS: EPITHELIAL CELLS,URINE MODERATE /HPF (NOT SEEN); MUCUS,URINE FEW /LPF (NOT SEEN)
[2023-11-10 17:52] LABS: BACTERIA,URINE FEW /HPF (0-FEW/HPF); HYALINE CASTS,URINE RARE; RBC,URINE 0-5 /HPF (0-5)
[2023-11-10 18:36] VITALS: BP 95/66
== END 2023-11-10 18:35 | disposition home or self-care (01) ==
LOC: DL.ED 15:40
DX: K59.03 Drug induced constipation (principal); T40.2X5A Adverse effect of other opioids, initial encounter; Z86.73 Personal history of transient ischemic attack (TIA), and cerebral infarction without residual deficits; Z90.49 Acquired absence of other specified parts of digestive tract; Z79.899 Other long term (current) drug therapy
CPT/HCPCS: 36415; 74177; 80053; 81001; 82140; 83690; 85025; 87086; 96360; 99284; J7030; Q9967

== ENCOUNTER 2023-11-22 11:59 | Emergency (ER) | payer OTHER ==
[2023-11-22 12:37] LABS: BASOPHILS PERCENT AUTO 0.2 % (0.0-1.0); EOSINOPHILS PERCENT AUTO 1.6 % (1.0-3.0); HEMATOCRIT 35.9 % (37.0-47.0); HEMOGLOBIN 12.4 g/dL (12.0-16.0); LYMPHOCYTES PERCENT AUTO 40.8 % (20.5-50.1); MEAN CORPUSCULAR HEMOGLOBIN 31.5 pg (27.0-34.0); MEAN CORPUSCULAR HGB CONC 34.5 g/dL (33.0-35.0); MEAN CORPUSCULAR VOLUME 91.1 fL (80-100); MONOCYTES PERCENT AUTO 8.9 % (2-8); NEUTROPHILS PERCENT AUTO 48.5 % (42.2-75.2); PLATELET COUNT,PLT 207 10^3/uL (150-450); RED BLOOD CELL COUNT 3.94 10^6/uL (4.2-5.4); WHITE BLOOD CELL COUNT,WBC 4.3 10^3/uL (5.0-10.0)
[2023-11-22 12:59] LABS: ALBUMIN 2.1 g/dL (3.4-5.0); ANION GAP 14.9 mEq/L (7-13); BILIRUBIN TOTAL 1.7 mg/dL (0.2-1.0); BUN/CREATININE RATIO 9.1 (No establ ref range); CALCIUM 8.2 mg/dL (8.5-10.1); CREATININE 0.77 mg/dL (0.55-1.02); EST CRCL DRUG DOSING (CG) 84.24 mL/min; POTASSIUM,K 3.9 mmol/L (3.5-5.1); PROTEIN TOTAL,TP 6.4 g/dL (6.4-8.2)
[2023-11-22] MEDS: Sodium Chloride 0.9% 10 ML Syringe FLUSH PRN (13:02)
[2023-11-22] MEDS: Ondansetron 4 MG/2 ML SDV IVPUSH ONE (13:03)
[2023-11-22] MEDS: Sodium Chloride 0.9% 1,000 ML IV ONE (13:03)
[2023-11-22] MEDS: Aspirin 81 MG Tab.Chew PO ONE (13:03)
[2023-11-22 13:05] LABS: A/G RATIO 0.49
[2023-11-22 13:46] LABS: CORONAVIRUS COVID-19 NAA NEGATIVE (NEGATIVE); INFLUENZA A NAA NEGATIVE (NEGATIVE); INFLUENZA B NAA NEGATIVE (NEGATIVE)
[2023-11-22 14:13] LABS: BILIRUBIN,URINE MODERATE (NEGATIVE); COLOR,URINE DARK YELLOW (YELLOW); GLUCOSE,URINE NEGATIVE (NEGATIVE); KETONES,URINE 15 (NEGATIVE); LEUKOCYTE ESTERASE,URINE TRACE (NEGATIVE); NITRITE,URINE NEGATIVE (NEGATIVE); OCCULT BLOOD,URINE NEGATIVE (NEGATIVE); PROTEIN,URINE 30 (NEGATIVE)
[2023-11-22 14:17] LABS: APPEARANCE,URINE SLIGHTLY CLOUDY (CLEAR)
[2023-11-22 14:22] LABS: BACTERIA,URINE FEW /HPF (0-FEW/HPF); CALCIUM OXALATE CRYSTALS,URINE RARE /HPF (NOT SEEN); EPITHELIAL CELLS,URINE FEW /HPF (NOT SEEN); HYALINE CASTS,URINE RARE; MUCUS,URINE OCCASIONAL /LPF (NOT SEEN); RBC,URINE 0-5 /HPF (0-5); WBC,URINE 0-5 /HPF (0-5/HPF)
[2023-11-22] MEDS ORDERED: Doxycycline Monohydrate 100 MG Cap PO ONE (14:32)
[2023-11-22] MEDS ORDERED: Take Home: Doxycycline 100 MG Cap, 4 Cap Pack PO ONE (14:35)
== END 2023-11-22 14:50 | disposition home or self-care (01) ==
LOC: DL.ED 11:59
DX: J18.9 Pneumonia, unspecified organism (principal); Z79.899 Other long term (current) drug therapy; Z86.73 Personal history of transient ischemic attack (TIA), and cerebral infarction without residual deficits; Z90.49 Acquired absence of other specified parts of digestive tract
CPT/HCPCS: 0240U; 36415; 80053; 81001; 84484; 85025; 85379; 87086; 87088; 87186; 93005; 96361; 96374; 99285; A9270; J2405; J7030; J3490

== ENCOUNTER 2023-11-27 09:36 | Emergency (ER) | payer OTHER ==
[2023-11-27 09:50] VITALS: BP 121/58; PULSE 69
[2023-11-27 10:44] LABS: BASOPHILS PERCENT AUTO 0.2 % (0.0-1.0); EOSINOPHILS PERCENT AUTO 2.6 % (1.0-3.0); HEMATOCRIT 31.5 % (37.0-47.0); HEMOGLOBIN 10.7 g/dL (12.0-16.0); LYMPHOCYTES PERCENT AUTO 48.8 % (20.5-50.1); MEAN CORPUSCULAR HEMOGLOBIN 31.1 pg (27.0-34.0); MEAN CORPUSCULAR VOLUME 91.6 fL (80-100); MONOCYTES PERCENT AUTO 7.2 % (2-8); NEUTROPHILS PERCENT AUTO 41.2 % (42.2-75.2); PLATELET COUNT,PLT 174 10^3/uL (150-450); RED BLOOD CELL COUNT 3.44 10^6/uL (4.2-5.4); WHITE BLOOD CELL COUNT,WBC 4.7 10^3/uL (5.0-10.0)
[2023-11-27 11:03] LABS: ALBUMIN 1.9 g/dL (3.4-5.0); ANION GAP 14.6 mEq/L (7-13); BILIRUBIN TOTAL 1.5 mg/dL (0.2-1.0); BUN/CREATININE RATIO 8.9 (No establ ref range); CALCIUM 8.3 mg/dL (8.5-10.1); CREATININE 0.9 mg/dL (0.55-1.02); EST CRCL DRUG DOSING (CG) 72.07 mL/min; POTASSIUM,K 3.6 mmol/L (3.5-5.1)
[2023-11-27 11:05] LABS: A/G RATIO 0.46
[2023-11-27 11:07] LABS: LACTIC ACID 1.2 mmol/L (0.4-2.0)
[2023-11-27] MEDS: Sodium Chloride 0.9% 1,000 ML IV ONE (11:26)
[2023-11-27] MEDS: Sodium Chloride 0.9% 10 ML Syringe FLUSH PRN (11:28)
[2023-11-27] MEDS: Furosemide 20 MG Tab PO ONE (12:32)
[2023-11-27 13:27] LABS: APPEARANCE,URINE CLEAR (CLEAR); BILIRUBIN,URINE SMALL (NEGATIVE); COLOR,URINE YELLOW (YELLOW); GLUCOSE,URINE NEGATIVE (NEGATIVE); KETONES,URINE 15 (NEGATIVE); LEUKOCYTE ESTERASE,URINE SMALL (NEGATIVE); NITRITE,URINE NEGATIVE (NEGATIVE); OCCULT BLOOD,URINE TRACE-INTACT (NEGATIVE); PROTEIN,URINE 30 (NEGATIVE)
[2023-11-27 13:35] LABS: BACTERIA,URINE RARE /HPF (0-FEW/HPF); EPITHELIAL CELLS,URINE FEW /HPF (NOT SEEN); RBC,URINE 0-5 /HPF (0-5); WBC,URINE 0-5 /HPF (0-5/HPF); YEAST,URINE MODERATE /HPF (NOT SEEN)
== END 2023-11-27 13:47 | disposition home or self-care (01) ==
LOC: DL.ED 09:36
DX: R09.89 Other specified symptoms and signs involving the circulatory and respiratory systems (principal); I69.354 Hemiplegia and hemiparesis following cerebral infarction affecting left non-dominant side; I10 Essential (primary) hypertension; Z86.16 Personal history of COVID-19; Z79.899 Other long term (current) drug therapy
CPT/HCPCS: 36415; 70450; 71045; 80053; 81001; 82140; 83605; 83880; 84145; 85025; 87040; 87086; 96360; 99284; 99285; A9270; J7030; 87088; 87186; J3490

== ENCOUNTER 2023-11-30 16:19 | Emergency (ER) | payer OTHER ==
[2023-11-30 17:09] LABS: BASOPHILS PERCENT AUTO 0.2 % (0.0-1.0); EOSINOPHILS PERCENT AUTO 0.2 % (1.0-3.0); HEMATOCRIT 32.6 % (37.0-47.0); HEMOGLOBIN 11.4 g/dL (12.0-16.0); LYMPHOCYTES PERCENT AUTO 33.5 % (20.5-50.1); MEAN CORPUSCULAR HEMOGLOBIN 31.3 pg (27.0-34.0); MEAN CORPUSCULAR VOLUME 89.6 fL (80-100); MONOCYTES PERCENT AUTO 10.2 % (2-8); NEUTROPHILS PERCENT AUTO 55.9 % (42.2-75.2); PLATELET COUNT,PLT 189 10^3/uL (150-450); RED BLOOD CELL COUNT 3.64 10^6/uL (4.2-5.4); WHITE BLOOD CELL COUNT,WBC 5.9 10^3/uL (5.0-10.0)
[2023-11-30 17:33] LABS: APPEARANCE,URINE CLEAR (CLEAR); BILIRUBIN,URINE SMALL (NEGATIVE); COLOR,URINE YELLOW (YELLOW); GLUCOSE,URINE NEGATIVE (NEGATIVE); KETONES,URINE TRACE (NEGATIVE); LEUKOCYTE ESTERASE,URINE NEGATIVE (NEGATIVE); NITRITE,URINE NEGATIVE (NEGATIVE); OCCULT BLOOD,URINE NEGATIVE (NEGATIVE); PROTEIN,URINE NEGATIVE (NEGATIVE); UROBILINOGEN,URINE 0.2 mg/dL (0.2-1.0)
[2023-11-30 17:37] LABS: AMPHETAMINES,URINE NEGATIVE (NEGATIVE); BARBITURATES,URINE NEGATIVE (NEGATIVE); BENZODIAZEPINE,URINE NEGATIVE (NEGATIVE); MDMA (ECSTASY), URINE NEGATIVE (NEGATIVE); METHADONE,URINE NEGATIVE (NEGATIVE); METHAMPHETAMINES,URINE NEGATIVE (NEGATIVE); OPIATES,URINE NEGATIVE (NEGATIVE); OXYCODONE,URINE POSITIVE (NEGATIVE); PHENCYCLIDINE,URINE NEGATIVE (NEGATIVE); TCA,URINE NEGATIVE (NEGATIVE)
[2023-11-30 17:38] LABS: ALBUMIN 2.3 g/dL (3.4-5.0); ANION GAP 14.8 mEq/L (7-13); BILIRUBIN TOTAL 1.7 mg/dL (0.2-1.0); BUN/CREATININE RATIO 9.8 (No establ ref range); CALCIUM 8.9 mg/dL (8.5-10.1); CREATININE 1.02 mg/dL (0.55-1.02); EST CRCL DRUG DOSING (CG) 61.39 mL/min; MAGNESIUM 1.7 mg/dL (1.8-2.4); POTASSIUM,K 2.8 mmol/L (3.5-5.1); PROTEIN TOTAL,TP 6.6 g/dL (6.4-8.2)
[2023-11-30 17:41] LABS: INR 1.6 (0.9-1.2); PROTHROMBIN TIME 16.2 SEC (9.0-12.0)
[2023-11-30 17:49] LABS: A/G RATIO 0.53
[2023-11-30 17:50] LABS: LACTIC ACID 2.4 mmol/L (0.4-2.0)
[2023-11-30] MEDS: Sodium Chloride 0.9% 1,000 ML IV ONE (18:01)
[2023-11-30 19:35] VITALS: BP 124/85; PULSE 108
[2023-11-30] MEDS: Potassium Chloride 20 MEQ in Premix Bag 1 BAG IV ONE (19:47)
[2023-11-30] MEDS: cefTRIAXone 1 GM Vial IVPUSH ONE (19:58)
[2023-11-30 20:24] LABS: ETHANOL BLOOD MEDICAL < 3 mg/dL (0)
== END 2023-11-30 21:30 ==
LOC: DL.ED 16:19
DX: G93.40 Encephalopathy, unspecified (principal); Z79.899 Other long term (current) drug therapy; Z86.16 Personal history of COVID-19; Z90.49 Acquired absence of other specified parts of digestive tract
CPT/HCPCS: 36415; 70450; 71045; 80053; 80305; 80307; 81003; 82140; 83605; 83735; 84443; 84484; 85025; 85610; 87040; 93005; 96361; 96365; 96375; 99285; C1758; J0696; J3480; J7030; 93010

== ENCOUNTER 2024-05-16 14:19 | Emergency (ER) | payer OTHER ==
[2024-05-16 15:28] LABS: BASOPHILS PERCENT AUTO 0.1 % (0.0-1.0); HEMATOCRIT 31.5 % (37.0-47.0); HEMOGLOBIN 11.1 g/dL (12.0-16.0); MEAN CORPUSCULAR HEMOGLOBIN 34.3 pg (27.0-34.0); MEAN CORPUSCULAR HGB CONC 35.2 g/dL (33.0-35.0); MEAN CORPUSCULAR VOLUME 97.2 fL (80-100); MONOCYTES PERCENT AUTO 5.4 % (2-8); NEUTROPHILS PERCENT AUTO 89.5 % (42.2-75.2); PLATELET COUNT,PLT 316 10^3/uL (150-450); RED BLOOD CELL COUNT 3.24 10^6/uL (4.2-5.4)
[2024-05-16 15:35] VITALS: BP 84/57; PULSE 101
[2024-05-16 15:47] LABS: ALANINE AMINOTRANSFERASE,ALT 33 U/L (14-59); ALBUMIN 1.7 g/dL (3.4-5.0); ALKALINE PHOSPHATASE 240 U/L (46-116); ANION GAP 15.4 mEq/L (7-13); ASPARTATE AMNIOTRANSFERASE,AST 99 U/L (15-37); BLOOD UREA NITROGEN,BUN 21 mg/dL (7-18); BUN/CREATININE RATIO 16.3 (No establ ref range); CALCIUM 8.2 mg/dL (8.5-10.1); CARBON DIOXIDE,CO2 23 mmol/L (21-32); CHLORIDE,CL 106 mmol/L (98-107); CREATININE 1.29 mg/dL (0.55-1.02); EST CRCL DRUG DOSING (CG) 46.77 mL/min; GLUCOSE RANDOM 148 mg/dL (70-99); MAGNESIUM 1.7 mg/dL (1.8-2.4); POTASSIUM,K 3.4 mmol/L (3.5-5.1); PROTEIN TOTAL,TP 6.9 g/dL (6.4-8.2); SODIUM,NA 141 mmol/L (136-145)
[2024-05-16 15:58] LABS: A/G RATIO 0.33; ESTIMATED GFR 48 mL/min (>=60); ETHANOL BLOOD MEDICAL < 3 mg/dL (0)
[2024-05-16] MEDS: cefTRIAXone 1 GM Vial IVPUSH ONE (16:19)
[2024-05-16] MEDS: Albuterol/Ipratropium 3.0-0.5 MG/3 ML Neb Soln NEB ONE (16:21)
[2024-05-16] MEDS: Magnesium Sulfate/Water Premix 2 GM in Premix Bag 1 BAG IV ONE (16:24)
[2024-05-16] MEDS: Azithromycin 500 MG in Sodium Chloride 0.9% 250 ML IV ONE (16:24)
[2024-05-16 16:25] LABS: O2 DELIVERY DEVICE ROOM AIR; PH,ARTERIAL 7.42 (7.35-7.45)
[2024-05-16 16:26] LABS: ALLEN TEST PERFORMED; BASE EXCESS ARTERIAL -2 mmol/L ((-2)-(+3)); BICARBONATE,ARTERIAL 21.9 mmol/L (22-26); O2 SATURATION ARTERIAL 93 % (95-100); PCO2 ARTERIAL 35 mmHg (35-45); PO2 ARTERIAL 66 mmHg (70-100)
[2024-05-16] MEDS: Sodium Chloride 0.9% 1,000 ML IV ONE (16:26)
[2024-05-16] MEDS: Potassium Chloride 10 MEQ Tab.ER PO ONE (16:36)
[2024-05-16] MEDS: Lactulose Soln 10 GM/15 ML 30 ML UD Cup PO ONE (16:36)
[2024-05-16 16:39] LABS: APPEARANCE,URINE CLEAR (CLEAR); BILIRUBIN,URINE NEGATIVE (NEGATIVE); COLOR,URINE YELLOW (YELLOW); GLUCOSE,URINE NEGATIVE (NEGATIVE); KETONES,URINE NEGATIVE (NEGATIVE); LEUKOCYTE ESTERASE,URINE NEGATIVE (NEGATIVE); NITRITE,URINE NEGATIVE (NEGATIVE); OCCULT BLOOD,URINE NEGATIVE (NEGATIVE); PH,URINE 5.5 (5.0-9.0); PROTEIN,URINE NEGATIVE (NEGATIVE); UROBILINOGEN,URINE 0.2 mg/dL (0.2-1.0)
[2024-05-16 16:45] LABS: AMPHETAMINES,URINE NEGATIVE (NEGATIVE); BARBITURATES,URINE NEGATIVE (NEGATIVE); BENZODIAZEPINE,URINE NEGATIVE (NEGATIVE); MDMA (ECSTASY), URINE NEGATIVE (NEGATIVE); METHADONE,URINE NEGATIVE (NEGATIVE); METHAMPHETAMINES,URINE NEGATIVE (NEGATIVE); OPIATES,URINE NEGATIVE (NEGATIVE); OXYCODONE,URINE POSITIVE (NEGATIVE); PHENCYCLIDINE,URINE NEGATIVE (NEGATIVE); TCA,URINE NEGATIVE (NEGATIVE)
[2024-05-16 16:59] LABS: INR 1.3 (0.9-1.2); PROTHROMBIN TIME 13.4 SEC (9.0-12.0)
[2024-05-16] MEDS ORDERED: Sodium Chloride 0.9% 1,000 ML IV ONE (17:51)
[2024-05-16] MEDS ORDERED: Norepinephrine Bit/D5W Premix 250 ML IV SCH (18:00)
[2024-05-16] MEDS: Naloxone 2 MG/2 ML Syringe IVPUSH ONE (18:51)
[2024-05-16] MEDS: Ondansetron 4 MG/2 ML SDV ONE (18:52)
== END 2024-05-16 17:38 ==
LOC: DL.ED 14:19
DX: A41.9 Sepsis, unspecified organism (principal); N17.9 Acute kidney failure, unspecified; J18.9 Pneumonia, unspecified organism; K76.82 Hepatic encephalopathy; E83.42 Hypomagnesemia; E87.6 Hypokalemia; R09.02 Hypoxemia; Z86.73 Personal history of transient ischemic attack (TIA), and cerebral infarction without residual deficits; Z86.16 Personal history of COVID-19; Z90.49 Acquired absence of other specified parts of digestive tract; Z79.899 Other long term (current) drug therapy
CPT/HCPCS: 36415; 36600; 70450; 71045; 80053; 80305; 80307; 81003; 82140; 82803; 83605; 83735; 83880; 84484; 85025; 85610; 87040; 87635; 87804; 93005; 94640; 96365; 96375; 99285; A9270; J0456; J0696; J2310; J2405; J3475; J7030; J7050; J7620-GY; U0002